=== PATIENT | male | born 1975 | race Caucasian/White ===

== ENCOUNTER 2017-05-14 07:31 | Emergency (ER) | payer SELFPAY ==
[~2017-05-14] VITALS: Ht 175.3 cm; Wt 74.8 kg
[2017-05-14 08:03] VITALS: BP 132/83
[2017-05-14] MEDS ORDERED: SULF1TAB24 PO (08:14)
--- NOTE | 2017-05-14 08:14 | PHYS DOC ---
Past Medical History Past Medical History: No Pertinent History Past Surgical History: Other Additional Past Surgical Histo: Ear tubes Alcohol Use: Occasionally Drug Use: Marijuana Adult General Chief Complaint Chief Complaint: INSECT BITE [facility] HPI Patient is a 41 year old male presents to the emergency department stating that he has a bite on his left knee that he has had for approximately 2 days. He states the area is red warm and tender and very hard. He has not taken anything for pain and discomfort. Patient denies any drainage or discharge coming from the site. Denies any numbness or tingling down to his lower extremity. Patient states his last tetanus immunization occurred approximately 4 months ago. Review of Systems Review of Systems Constitutional: Denies fever or chills [] Eyes: Denies change in visual acuity, redness, or eye pain [] HENT: Denies nasal congestion or sore throat [] Respiratory: Denies cough or shortness of breath [] Cardiovascular: No additional information not addressed in HPI [] GI: Denies abdominal pain, nausea, vomiting, bloody stools or diarrhea [] : Denies dysuria or hematuria [] Musculoskeletal: Denies back pain or joint pain [] Integument: Denies rash or skin lesions. Redness, tenderness and warmth to left knee Neurologic: Denies headache, focal weakness or sensory changes [] Endocrine: Denies polyuria or polydipsia [] Allergies Allergies Allergies Coded Allergies Type Severity Reaction Last Updated Verified Penicillins Allergy Intermediate 05/14/17 Yes Physical Exam Physical Exam Constitutional: Well developed, well nourished, no acute distress, non-toxic appearance. [] HENT: Normocephalic, atraumatic, bilateral external ears normal, oropharynx moist, no oral exudates, nose normal. [] Eyes: PERRLA, EOMI, conjunctiva normal, no discharge. [] Neck: Normal range of motion, no tenderness, supple, no stridor. [] Cardiovascular:Heart rate regular rhythm, no murmur [] Lungs & Thorax: Bilateral breath sounds clear to auscultation [] Skin: Warm, dry, no erythema, no rash. Left inner knee with bite noted that is red, warm and tender. Area is not circumferential. Peripheral pulses 2+ cap refill brisk < 2 seconds. No drainage or discharge noted from the site Back: No tenderness Extremities: No tenderness, no cyanosis, no clubbing, ROM intact, no edema. [] Neurologic: Alert and oriented X 3, normal motor function, normal sensory function, no focal deficits noted. [] Psychologic: Affect normal, judgement normal, mood normal. [] Current Patient Data Vital Signs Vital Signs Date Time Temp Pulse Resp B/P (MAP) Pulse Ox O2 Delivery O2 Flow Rate FiO2 05/14/17 08:03 97.6 91 20 97 Room Air 97.6 EKG EKG [] Radiology/Procedures Radiology/Procedures [] Course & Med Decision Making Course & Med Decision Making Pertinent Labs and Imaging studies reviewed. (See chart for details) Patient was instructed we will place him on Bactrim. He was asking for a dose of Bactrim today. He states he does not get paid till tomorrow will not build up the prescription up until then. Explained to patient that taking a dose of Bactrim one time today would actually cause increase harm than good. Spoke with patient about Bactrim being on the $4 list. Patient will be discharged home in stable condition recommended Tylenol or ibuprofen for pain and discomfort. Warm moist packs to the area 4-5 times a day. Patient will be discharged with recommendations to follow-up with primary care physician in the next 3-5 days. Patient was also provided with signs symptoms to return back to emergency department. Patient agrees with discharge instructions, treatment regimens and follow-up recommendations. All questions were answered at patient's bedside. [] Dragon Disclaimer Dragon Disclaimer This electronic medical record was generated, in whole or in part, using a voice recognition dictation system. Departure Departure Impression: Primary Impression: Cellulitis of left knee Disposition: HOME, SELF-CARE Condition: STABLE Patient Instructions: Cellulitis, [id number] Additional Instructions: Activity as tolerated. Antibiotics as prescribed. Make sure he take the full course of the antibiotics do not stop once the area starts looking better. Tylenol or ibuprofen for pain and discomfort. Warm moist packs to the area 4-5 times a day. Elevation as much as possible. Follow-up the primary care physician in the next 3-5 days. Return back to emergency department sign symptoms of become worse. Scripts Sulfamethoxazole/Trimethoprim (BACTRIM DS TABLET) 1 Each Tablet 1 TAB PO BID, #20 TAB Prov: ADE REEVES APRN 05/14/17 ADE REEVES APRN May 14, 2017 08:14
== END 2017-05-14 08:15 | disposition home or self-care (01) ==
LOC: ER 07:31
DX: L03.116 Cellulitis of left lower limb (principal); F12.10 Cannabis abuse, uncomplicated; Z96.22 Myringotomy tube(s) status; Z88.0 Allergy status to penicillin
CPT/HCPCS: 99283